=== PATIENT | male | born 1945 | race Caucasian/White ===

== ENCOUNTER 2018-03-08 10:41 | Observation (INO) ==
[2018-03-08] MEDS ORDERED: 0.9 % Sodium Chloride 500 ML IVC ONE (11:28)
[2018-03-08] MEDS ORDERED: Isovue-370 500 ML INFUS..BTL IV ONE (11:29)
[2018-03-08] MEDS ORDERED: Ondansetron 4 MG/2 ML VIAL IVP ONE (11:30)
--- NOTE | 2018-03-08 11:38 | Emergency Department Note ---
Disposition Clinical Impression: Dizziness, TIA (transient ischemic attack) Disposition: Admitted As Inpatient Condition: Fair Time of Disposition: 15:08 Dizziness HPI - General Chief Complaint: ED Dizziness Stated Complaint: Dizziness Time Seen by Provider: 03/08/18 10:47 Source: patient Mode of arrival: ambulatory Limitations: no limitations Nursing Notes Reviewed: Yes Vital Signs Reviewed: Yes - History of Present Illness HPI Narrative: 72-year-old male with history of cleft lip and cleft palate in the past presents for evaluation of dizziness. Patient states he has had dizziness for proximally one month but is not been completely evaluated. States he did see his primary care doctor who prescribed him antibiotics for an ear infection. Patient noted that he did seek medical care at [facility] yesterday for dizziness. Family at bedside was concerned because the patient was not acting appropriately. Patient did have some garbled and slurred speech that lasted approximately 1520 minutes. Repeat episode that occurred prior to arrival today. No history of strokes in the past. Family states he does have an appointment with vascular surgery in March for concerns of subclavian stenosis. Patient denies any chest pain but was complaining of some neck pain. No nausea or vomiting. Dizziness is described as room spinning not necessarily positional. Patient also is describing unsteadiness on his feet. Patient does have a strong history of secondhand smoke. - Related Data Home Medications Medication Instructions Recorded Confirmed No Known Home Drugs 03/07/18 03/08/18 Allergies Allergy/AdvReac Type Severity Reaction Status Date / Time No Known Allergies Allergy Verified 03/07/18 13:04 All systems ED: reviewed and negative except as stated. Constitutional: Denies: fever Cardiovascular: Denies: chest pain Respiratory: Reports: dyspnea Gastrointestinal: Denies: abdominal pain, nausea, vomiting Past Medical History - Past Medical History Source: patient Medical history: Reports: no medical history Psychiatric history: Reports: no psych history - Social History Smoking Status: Former smoker Smokeless Tobacco Status: No Alcohol use: Reports: none Drug use: Reports: none Physical Exam - General Limitations: no limitations General appearance: alert, in no apparent distress - Head Head exam: atraumatic, normocephalic, normal inspection - Eye Eye exam: Present: normal appearance, PERRL, EOMI, nystagmus (horizontal nystagmis) - ENT ENT exam: normal exam, normal oropharynx, mucous membranes moist, TM's normal bilaterally - Neck Neck exam: Present: normal inspection, trachea midline - Chest Chest inspection: Present: normal inspection, symmetric chest wall rise - Respiratory Respiratory exam: Present: other (diffusely diminished). Absent: accessory muscle use - Abdominal Exam Abdominal exam: Present: soft, Non-Tender - Extremities Exam Extremities exam: Present: normal inspection. Absent: pedal edema - Expanded Lower Extremity Exam Neurovascular/Tendon exam: Present: normal capillary refill - Back Exam Back exam: Present: normal inspection - Neurological Exam Neurological exam: Present: alert, oriented X3, CN II-XII intact - Expanded Neurological Exam Patient oriented to: Present: person, place, time Speech: Present: fluid speech Cranial nerves: EOM function (II, III, IV, ): Normal, facial sensation (V): Normal, facial palsy (VII): Normal, spinal accessory function (XI): Normal, tongue deviation (XII): Normal Cerebellar function: finger to nose: Normal Motor strength - LUE: 5/5 Motor strength - RUE: 5/5 Motor strength - LLE: 5/5 Motor strength - RLE: 5/5 Coma Scale Eye Opening: Spontaneous Coma Scale Motor Response: Obeys Commands Coma Scale Verbal Response: Oriented Coma Scale Total: 15 Course Course Narrative: Patient seen and examined. Patient has a nonfocal neurologic exam. Patient is describing dizziness. Patient does have risk factors for vascular disease. Patient also has risk factors for TIA. Concerns the patient may have central cause of his dizziness. Patient will get CT angiogram of the head as well as CT scan the head with basic labs including EKG chest x-ray. Patient was not a s troke alert as he does not have a non focal exam. Disposition pending. - Reevaluation(s) Reevaluation #1: Patient's resting comfortably. No needs at this time. Awaiting CT angiogram of the neck as well as CT of the head. Time: 13:02 Reevaluation #2: Updated on plan of care. Neuro exam is unchanged Time: 15:10 Vital Signs Temperature 97.5 F L 03/08/18 10:43 Pulse Rate 61 03/08/18 10:43 Respiratory Rate 16 03/08/18 10:43 Blood Pressure 148/77 03/08/18 10:43 O2 Sat by Pulse Oximetry 96 03/08/18 10:43 Temperature 97.5 F L 03/08/18 12:13 Pulse Rate 64 03/08/18 14:00 Respiratory Rate 16 03/08/18 14:00 Blood Pressure 143/78 03/08/18 14:00 O2 Sat by Pulse Oximetry 96 03/08/18 14:00 Oxygen Delivery Oxygen Delivery Room Air Dizziness - MDM Narrative Medical decision making narrative: Patient presented for concerns of dizziness. Patient does have risk factors for CVA/TIA. at bedside actually with describing slurred speech and garbled speech earlier today and last night. Patient was not a stroke alert given asymptomatic upon arrival. Patient's NIH of 0. No ataxia. Patient had CT imaging of the head as well as CT angiogram of the neck. No acute abnormalities besides small vessel ischemic disease. Patient will be admitted for advanced imaging at optimal medical management. Patient's been resting comfortable in the ED. - Lab Data Lab results reviewed: Yes I reviewed the patient's lab results. Result diagrams: 03/08/18 11:36 03/08/18 11:36 Lab Results 03/08/18 03/08/18 03/08/18 Range/Units 11:36 11:36 11:36 WBC 7.5 (4.3-11.1) K/mcL RBC 4.59 (4.19-5.50) M/mcL Hgb 14.4 (12.9-16.9) g/dL Hct 43.1 (37.5-50.1) % MCV 93.9 (83.0-100.0) fL MCH 31.4 (28.0-33.3) pg MCHC 33.4 (31.6-35.5) g/dL RDW 12.7 (11.5-14.5) % Plt Count 279 (140-400) K/mcL MPV 9.8 (9.4-12.4) fL Immature Gran % 0.3 (0-4) % Seg Neutrophils % 69.3 % Lymphocytes % 20.9 % Monocytes % 7.9 % Eosinophils % 1.1 % Basophils % 0.5 % Neutrophils # 5.2 (1.6-8.9) K/mcL Lymphocytes # 1.6 (0.6-4.6) K/mcL Monocytes # 0.6 (0.0-1.3) K/mcL Eosinophils # 0.1 (0.0-0.6) K/mcL Basophils # 0.0 (0.0-0.2) K/mcL PT 12.0 (9.4-12.1) Seconds INR 1.1 Sodium (136-145) mEq/L Potassium (3.5-5.1) mEq/L Chloride (98-107) mEq/L Carbon Dioxide (23-29) mEq/L BUN (8-23) mg/dL Creatinine (0.70-1.30) mg/dL Est GFR ( Amer) (> 60) Est GFR (Non-Af Amer) (> 60) BUN/Creatinine Ratio (6-26) Glucose (70-105) mg/dL Calculated Osmolality (280-300) Calcium (8.6-10.3) mg/dL Troponin I (< 0.04) ng/mL B-Natriuretic Peptide 16 (Less than 100) pg/mL 03/08/18 Range/Units 11:36 WBC (4.3-11.1) K/mcL RBC (4.19-5.50) M/mcL Hgb (12.9-16.9) g/dL Hct (37.5-50.1) % MCV (83.0-100.0) fL MCH (28.0-33.3) pg MCHC (31.6-35.5) g/dL RDW (11.5-14.5) % Plt Count (140-400) K/mcL MPV (9.4-12.4) fL Immature Gran % (0-4) % Seg Neutrophils % % Lymphocytes % % Monocytes % % Eosinophils % % Basophils % % Neutrophils # (1.6-8.9) K/mcL Lymphocytes # (0.6-4.6) K/mcL Monocytes # (0.0-1.3) K/mcL Eosinophils # (0.0-0.6) K/mcL Basophils # (0.0-0.2) K/mcL PT (9.4-12.1) Seconds INR Sodium 140 (136-145) mEq/L Potassium 4.1 (3.5-5.1) mEq/L Chloride 105 (98-107) mEq/L Carbon Dioxide 27 (23-29) mEq/L BUN 18 (8-23) mg/dL Creatinine 0.78 (0.70-1.30) mg/dL Est GFR ( Amer) > 60 (> 60) Est GFR (Non-Af Amer) > 60 (> 60) BUN/Creatinine Ratio 23 (6-26) Glucose 98 (70-105) mg/dL Calculated Osmolality 292 (280-300) Calcium 9.3 (8.6-10.3) mg/dL Troponin I < 0.03 (< 0.04) ng/mL B-Natriuretic Peptide (Less than 100) pg/mL - Radiology Data Radiology results reviewed: Yes I reviewed the patient's radiology results. Chest X-Ray 03/08/18 11:28 IMPRESSION: No acute process. D/ / Nghia Reno MD / Nghia Reno MD Interpreting Provider: Nghia Reno MD Head CT 03/08/18 11:29 IMPRESSION: Sequela of chronic small vessel ischemic change. No acute intracranial abnormality seen. D/ / 03/08/2018 14:39:54 Sam Melendez MD / Becky Shipley Interpreting Provider: Sam Melendez MD Neck CTA 03/08/18 11:29 IMPRESSION: Patent neck arteries. D/ / Abad Gregg MD / Abad Gregg MD Interpreting Provider: Abad Gregg MD - EKG Data EKG attestation: Yes I reviewed and interpreted this EKG. EKG shows normal: sinus rhythm Rate: normal Rhythm: NSR [place]/QRS: normal Heart block present: 1st Degree Interpretation: no acute changes, nonspecific ST-T wave changes S.B.A.R. - S.B.A.R. Situation: Demographics Background: Presenting Complaint Assessment: Vital Signs, Course and respsone to treatment, Patient/Family Expectation Recommendation: Barrier(s) to disposition, Recommendation based on pending studies, treatments, or consults S.B.A.R. Report Given to: Hospitalist S.B.A.R. Repor Time: 15:08 Attestation Statement - Attestation Attestation: I, Mp Larkin, examined this patient and my medical decision-making was reviewed with the CONCRETE PAVING MACHINE OPERATOR/PA/Advanced Practice Nurse/Resident Physician. I agree with the documented findings, disposition and treatment plan as described except to the extent set forth below. 72-year-old male presents emergency Department with concerns of lightheadedness and slurred speech. Patient reports history of lightheadedness intermittently over the past month however last night he developed slurred speech. Slurred speech improved throughout the night and he states he is mostly at his baseline in the emergency department. CT of the head and neck was negative for Acute fracture or arterial dissection or intracranial hemorrhage. Patient will likely require MRI in the hospital. He denies fever, chills, vomiting, diarrhea, chest pain, palpitations. Patient will be admitted for further care and evaluation.
[2018-03-08 11:49] LABS: Basophils % 0.5 %; Eosinophils # 0.1 K/mcL (0.0-0.6); Eosinophils % 1.1 %; Hematocrit 43.1 % (37.5-50.1); Hemoglobin 14.4 g/dL (12.9-16.9); Immature Granulocytes % 0.3 % (0-4); Lymphocytes # 1.6 K/mcL (0.6-4.6); Lymphocytes % 20.9 %; Mean Corpuscular HGB Conc 33.4 g/dL (31.6-35.5); Mean Corpuscular Hemoglobin 31.4 pg (28.0-33.3); Mean Corpuscular Volume 93.9 fL (83.0-100.0); Mean Platelet Volume 9.8 fL (9.4-12.4); Monocytes # 0.6 K/mcL (0.0-1.3); Monocytes % 7.9 %; Neutrophils # 5.2 K/mcL (1.6-8.9); Platelet Count 279 K/mcL (140-400); Red Blood Count 4.59 M/mcL (4.19-5.50); Red Cell Distribution Width 12.7 % (11.5-14.5); Segmented Neutrophils % 69.3 %
[2018-03-08 12:05] LABS: INR 1.1
[2018-03-08 12:11] LABS: Troponin I < 0.03 ng/mL (< 0.04)
[2018-03-08 12:26] LABS: BUN/Creatinine Ratio 23 (6-26); Blood Urea Nitrogen 18 mg/dL (8-23); Calcium 9.3 mg/dL (8.6-10.3); Carbon Dioxide 27 mEq/L (23-29); Chloride 105 mEq/L (98-107); Glucose 98 mg/dL (70-105); Osmolality,Calculated 292 (280-300); Potassium 4.1 mEq/L (3.5-5.1); Sodium 140 mEq/L (136-145); eGFR For Non-African Americans > 60 (> 60)
[2018-03-08] MEDS ORDERED: Aspirin 325 MG TABLET PO ONE (15:08)
--- NOTE | 2018-03-08 15:28 | Internal Med History&Physical ---
Date of Encounter: 03/08/18 Time of Encounter: 15:19 Internal Medicine - H&P: HPI Chief complaint: dizziness Admitted From: Home Plans for Post Hospital Care: Home History of present illness: Mr. Pa is a 72 year old male with no significant past medical history presented to the emergency department with dizziness. As per patient he said dizziness for the past 2 months and visited his primary care doctor who pres cribed him antibiotics approximately 2 months ago for an ear infection. He pleaded a course of antibiotics however reports that he still has dizziness. He describes his dizziness as the sensation of the room spinning around. Apparently was seen at [facility] yesterday for similar symptoms and was discharged home. He reports that this morning his dizziness got worse especially when he was getting out of bed. was at bedside reports that he also had some slurring of his speech earlier in the morning which has resolved by the time he came to the hospital. Rapid head movements make dizziness worse, getting up from a laying position makes the dizziness worse cannot recall allev iating factors except laying still. He denies recent head trauma, similar symptoms in the past, fever, chills, chest pain, shortness of breath, nausea, vomiting, diarrhea, palpitations, of consciousness, syncope, weakness or numbness in any of his extremities. In the ED CT head did not show any acute abnormalities, CTA neck was negative for any acute abnormalities. He was admitted for further evaluation of his dizziness. Past Med Surg Social Fam HX - Past Medical History Medical history: no medical history Additional medical history: congental disease, ears perferated, Psychiatric history: no psych history - Past Surgical History Additional surgical history: hernia repair - Social History Smoking Status: Former smoker Smokeless Tobacco Status: No Alcohol use: none Drug use: none Internal Medicine - H&P: Meds No Known Home Drugs 03/07/18 [History] Allergy/AdvReac Type Severity Reaction Status Date / Time No Known Allergies Allergy Verified 03/07/18 13:04 All Systems PM: A 10-system review of systems was performed and is negative for pertinent findings except as documented above in the HPI. - Constitutional Vitals: Temp Pulse Resp BP Pulse Ox 97.5 F L 68 16 136/95 97 03/08/18 12:13 03/08/18 15:00 03/08/18 15:00 03/08/18 15:00 03/08/18 15:00 Exam: General: Patient is alert, oriented, no acute distress, Head: atraumatic, normocephalic, Eye: normal appearance, PERRL, no scleral icterus, no conjunctival injection ENT: mucous membranes moist, normal external ear exam, poor dentition, cleft lip which is been operated on. Neck: normal inspection, trachea midline, full ROM, no carotid bruits Chest: normal inspection, symmetric chest rise Respiratory: Good respiratory effort. Bilateral breath sounds are clear without wheezing, crackles, or rhonchi. Cardiovascular: Regular rate and rhythm. s1 and s2 No clicks, rubs, gallops, or murmors. Abdomen: Bowel sounds present normoactive x-4 quadrants. Abdomen is soft, nondistended. no Epigastric tenderness. No guarding or rebound. No organomegaly noted, obese musculoskeletal: Spontaneously moving all extremities. no edema, no calf tenderness Skin: warm, dry, intact. Neuro: Alert and oriented x4. Sensation light touch intact. Cranial nerves 2- 12 is intact. [id number] is intact, rapid hand movements intact strength is 5 out of 5 in all extremities, speech is at baseline Psych: Patient's affect is normal Internal Med - H&P Results - Labs CBC & Chem 7: 03/08/18 11:36 03/08/18 11:36 Labs: Short CBC 03/08/18 Range/Units 11:36 WBC 7.5 (4.3-11.1) K/mcL Hgb 14.4 (12.9-16.9) g/dL Hct 43.1 (37.5-50.1) % Plt Count 279 (140-400) K/mcL Neutrophils # 5.2 (1.6-8.9) K/mcL BMP 03/08/18 11:36 Sodium 140 Potassium 4.1 Chloride 105 Carbon Dioxide 27 BUN 18 Creatinine 0.78 Glucose 98 Calcium 9.3 Cardiac Enzymes 03/08/18 Range/Units 11:36 Troponin I < 0.03 (< 0.04) ng/mL - EKG Data -: EKG Interpreted by Myself (Sinus rhythm, QT of 410) - Impressions ITS Impressions Chest X-Ray 03/08/18 11:28 IMPRESSION: No acute process. D/ / Nghia Reno MD / Nghia Reno MD Interpreting Provider: Nghia Reno MD Head CT 03/08/18 11:29 IMPRESSION: Sequela of chronic small vessel ischemic change. No acute intracranial abnormality seen. D/ / 03/08/2018 14:39:54 Sam Melendez MD / Becky Shipley Interpreting Provider: Sam Melendez MD Neck CTA 03/08/18 11:29 IMPRESSION: Patent neck arteries. D/ / Abad Gregg MD / Abad Gregg MD Interpreting Provider: Abad Gregg MD - Assessment and plan (1) TIA (transient ischemic attack) Current Visit: Yes Status: Acute Assessment and plan: Patient had slurred speech on the morning of admission which has resolved CT head performed in the emergency department did not show any acute disease CTA head performed in the ED did not show any acute disease Will get MRI headreports no metals in his body Echocardiogram Was given aspirin 325 mg in the emergency department we will continue with 81 mg daily Lipitor 80 mg daily at bedtime Lipid panel, TSH, A1c Physical therapy and rehabilitation evaluation DVT prophylaxis with subcutaneous heparin Neuro checks every 4 hours Cardiac monitoring Neurology consultation U tox CTA neck: IMPRESSION: Patent neck arteries. CT head: IMPRESSION: Sequela of chronic small vessel ischemic change. No acute intracranial abnormality seen. (2) Vertigo Current Visit: Yes Status: Acute Assessment and plan: Most likely secondary to inner ear ?infection vs BPPV vs stroke We will start meclizine 12.5 mg 3 times a day when necessary for dizziness Imaging as per above Management as per above (3) DVT prophylaxis Current Visit: Yes Status: Acute Assessment and plan: heparin subcutaneous - Time Spent With Patient Total time spent is greater than 50% in coordination of care (as documented) at patient's floor/unit and/or counseling patient:
[2018-03-08] MEDS ORDERED: Acetaminophen 325 MG TABLET PO PRN (15:33)
[2018-03-08] MEDS ORDERED: Naloxone 0.4 MG/ML INJ IVP PRN (15:33)
--- NOTE | 2018-03-08 17:39 | Electrocardiograph Report ---
[place] [id number] Test Date: 2018-03-08 Pat Name: Haim Pa Department: [id number] Room: 3B Gender: M Patternator: : 1945 Requested By: Anant Braxton Order Number: [id number] Reading MD: Blanco Sheridan Measurements Intervals [place] Rate: 59 P: -29 VA: 212 QRS: -4 QRSD: 95 T: 8 QT: 413 QTc: 410 Interpretive Statements Sinus rhythm Borderline prolonged VA interval Electronically Signed On 03-08-2018 17:37:38 EST by Blanco Sheridan
[2018-03-08] MEDS: *HR* Heparin 5,000 UNIT/ML VIAL SQ SCH (21:47)
[2018-03-09 05:29] LABS: Basophils % 0.6 %; Eosinophils # 0.1 K/mcL (0.0-0.6); Eosinophils % 1.8 %; Hematocrit 41.4 % (37.5-50.1); Hemoglobin 13.8 g/dL (12.9-16.9); Immature Granulocytes % 0.3 % (0-4); Lymphocytes # 1.8 K/mcL (0.6-4.6); Lymphocytes % 25.2 %; Mean Corpuscular HGB Conc 33.3 g/dL (31.6-35.5); Mean Corpuscular Hemoglobin 31.4 pg (28.0-33.3); Mean Corpuscular Volume 94.3 fL (83.0-100.0); Mean Platelet Volume 9.9 fL (9.4-12.4); Monocytes # 0.5 K/mcL (0.0-1.3); Monocytes % 7.5 %; Neutrophils # 4.6 K/mcL (1.6-8.9); Platelet Count 268 K/mcL (140-400); Red Blood Count 4.39 M/mcL (4.19-5.50); Red Cell Distribution Width 12.7 % (11.5-14.5); Segmented Neutrophils % 64.6 %
[2018-03-09 05:55] LABS: BUN/Creatinine Ratio 24 (6-26); Blood Urea Nitrogen 18 mg/dL (8-23); Carbon Dioxide 25 mEq/L (23-29); Chloride 108 mEq/L (98-107); Chol/HDL Ratio 5.6 (0-4.9); Cholesterol 179 mg/dL (< 200); Glucose 116 mg/dL (70-105); HDL Cholesterol 32 mg/dL (40-59); LDL Cholesterol,Calculated 127 mg/dL (0-99); Osmolality,Calculated 293 (280-300); Potassium 4.1 mEq/L (3.5-5.1); Sodium 140 mEq/L (136-145); Triglycerides 102 mg/dL (< 150); eGFR For Non-African Americans > 60 (> 60)
[2018-03-09 06:04] LABS: Thyroid Stimulating Hormone 2.373 mcIU/mL (0.340-5.600)
[2018-03-09] MEDS: *HR* Heparin 5,000 UNIT/ML VIAL SQ SCH ×3 (06:06→20:05)
[2018-03-09 07:03] LABS: Estimated Average Glucose 117 mg/dl; Hemoglobin A1C 5.7 %
[2018-03-09] MEDS: Cyanocobalamin (B-12) 1,000 MCG TABLET PO SCH (09:02)
[2018-03-09] MEDS: Aspirin Enteric Coated 81 MG Tablet PO SCH (09:02)
--- NOTE | 2018-03-09 13:35 | Internal Med Progress Note ---
Hospitalist Progress Note - Encounter Date of Encounter: 03/09/18 Time of Encounter: 07:45 - Subjective Interval History: patient was seen and examiedn at bedside, at bedside- all questions answered he reports that he still feels dizzy both at rest and when he sits up. reports that the medicine is only helping him minimally. is tolerating diet denies fever, chills, N/V/D, CP, SOB. not complaining of pain - Exam Vitals: Temp Pulse Resp BP Pulse Ox 98.4 F 66 15 129/83 95 03/09/18 11:42 03/09/18 11:42 03/09/18 11:42 03/09/18 11:42 03/09/18 11:42 Exam: General: Patient is alert, oriented, no acute distress, Head: atraumatic, normocephalic, Eye: normal appearance, PERRL, no scleral icterus, no conjunctival injection ENT: mucous membranes moist, normal external ear exam, poor dentition, cleft lip which is been operated on. Neck: normal inspection, trachea midline, full ROM, no carotid bruits Chest: normal inspection, symmetric chest rise Respiratory: Good respiratory effort. Bilateral breath sounds are clear without wheezing, crackles, or rhonchi. Cardiovascular: Regular rate and rhythm. s1 and s2 No clicks, rubs, gallops, or murmors. Abdomen: Bowel sounds present normoactive x-4 quadrants. Abdomen is soft, nondistended. no Epigastric tenderness. No guarding or rebound. No organomegaly noted, obese musculoskeletal: Spontaneously moving all extremities. no edema, no calf tenderness Skin: warm, dry, intact. Neuro: Alert and oriented x4. Sensation light touch intact. Cranial nerves 2- 12 is intact. [id number] is intact, rapid hand movements intact strength is 5 out of 5 in all extremities, speech is at baseline Psych: Patient's affect is normal - Assessment and Plan (1) TIA (transient ischemic attack) Current Visit: Yes Status: Acute Assessment and Plan: Patient had slurred speech on the morning of admission which has resolved CT head performed in the emergency department did not show any acute disease CTA head performed in the ED did not show any acute disease MRI head - NAD Echocardiogram pending Was given aspirin 325 mg in the emergency department we will continue with 81 mg daily Lipitor 80 mg daily at bedtime Lipid panel noted - will decrease lipitor to 40 mg daily A1c 5.7 TSH 2.373 Physical therapy and rehabilitation evaluation DVT prophylaxis with subcutaneous heparin Neuro checks every 4 hours Cardiac monitoring Neurology consulted will follow recs U tox- pending CTA neck: IMPRESSION: Patent neck arteries. CT head: IMPRESSION: Sequela of chronic small vessel ischemic change. No acute intracranial abnormality seen. MRI: IMPRESSION: No acute intracranial abnormality. Mild parenchymal volume loss. Mild chronic microvascular disease. (2) Vertigo Current Visit: Yes Status: Acute Assessment and Plan: Most likely secondary to inner ear ?infection vs BPPV vs stroke We will start meclizine 12.5 mg 3 times a day for dizziness neurology consulted will follow recommendations as he still feels dizzy. Imaging as per above Management as per above (3) DVT prophylaxis Current Visit: Yes Status: Acute Assessment and Plan: heparin subcutaneous - Time Spent with Patient Total time spent is greater than 50% in coordination of care (as documented) at patient's floor/unit and/or counseling patient: Internal Medicine: Result - Labs CBC & Chem 7: 03/09/18 05:11 03/09/18 05:11 Labs: Short CBC 03/09/18 Range/Units 05:11 WBC 7.1 (4.3-11.1) K/mcL Hgb 13.8 (12.9-16.9) g/dL Hct 41.4 (37.5-50.1) % Plt Count 268 (140-400) K/mcL Neutrophils # 4.6 (1.6-8.9) K/mcL BMP 03/09/18 05:11 Sodium 140 Potassium 4.1 Chloride 108 H Carbon Dioxide 25 BUN 18 Creatinine 0.76 Glucose 116 H Calcium 9.0 - ABG Interpretation ABG results: PT/INR, D-dimer PT 12.0 Seconds (9.4-12.1) 03/08/18 11:36 - Impressions Impressions Head CT 03/08/18 11:29 IMPRESSION: Sequela of chronic small vessel ischemic change. No acute intracranial abnormality seen. D/ / 03/08/2018 14:39:54 Sam Melendez MD / Becky Shipley Interpreting Provider: Sam Melendez MD Neck CTA 03/08/18 11:29 IMPRESSION: Patent neck arteries. D/ / Abad Gregg MD / Abad Gregg MD Interpreting Provider: Abad Gregg MD Brain MRI 03/08/18 15:33 IMPRESSION: No acute intracranial abnormality. Mild parenchymal volume loss. Mild chronic microvascular disease. D/ / Aguilar Carrillo MD / Aguilar Carrillo MD Interpreting Provider: Aguilar Carrillo MD Consult Discharge Plan - Plan Referrals: Adalgisa Qureshi MD [Primary Care Provider] -
--- NOTE | 2018-03-09 17:28 | Neurology - Consult Note ---
Date of Encounter: 03/09/18 Time of Encounter: 15:26 Assessment and Plan (1) Dizziness Current Visit: Yes Status: Acute This patient was been experiencing this dizziness for the past 2 months already has received outpatient antibiotics continued to be dizzy but is predominantly positional in nature without any clinical sinus symptoms to be suggestive of posterior circulation stroke. No evidence of any vertebral basilar insufficiency on CT angiogram of the neck which has been negative. Next line MRI of the brain was also negative. Considering his symptoms he may benefit from IV fluids perhaps could try him on a steroid as sometimes that also helpful patient would also benefit from outpatient vestibular rehabilitation due to the fact that this looks more peripheral than central. Other treatment is as per primary team (2) Vertigo Current Visit: Yes Status: Acute History of Present Illness HPI: Mr. Pa is a 72 year old male with no significant past medical history presented to the emergency department with dizziness. according to pt, he has dizziness for the past 2 months and visited his primary care doctor who prescribed him antibiotics approximately 2 months ago for an ear infection. He describes his dizziness as the sensation of the room spinning around. Apparently was seen at [facility] yesterday for similar symptoms and was discharged home. He reports that this morning his dizziness got worse especially when he was getting out of bed, head movements make dizziness worse, getting up from a laying position makes the dizziness worse. He denies recent head trauma, similar symptoms in the past, fever, chills, chest pain, shortness of breath, nausea, vomiting, diarrhea, palpitations, of consciousness, syncope, weakness or numbness in any of his extremities. In the ED CT head did not show any acute abnormalities, CTA neck was negative for any acute abnormalities. He was admitted for further evaluation of his dizziness. also had MRI of brain reported as negative Past Med Surg Social Fam HX - Past Medical History Medical history: no medical history Additional medical history: congental disease, ears perferated, Psychiatric history: no psych history - Past Surgical History Additional surgical history: hernia repair - Social History Smoking Status: Former smoker Smokeless Tobacco Status: No Alcohol use: none Drug use: none - Family History Mother Living Status: Still Living Hx Family Genitourinary Disorders: Yes (renal disease) Hx Family Neurologic Disorders: Yes (dementia) Father Living Status: Still Living Hx Family Cardiac Disorders: Yes (carotids) Medications and Allergies No Known Home Drugs 03/07/18 [History] Allergy/AdvReac Type Severity Reaction Status Date / Time No Known Allergies Allergy Verified 03/07/18 13:04 All Systems: The remainder of the systems were reviewed and are negative Physical Examination - Vital Signs Vital Signs: Initial Vital Signs Temp Pulse Resp BP Pulse Ox 97.5 F L 61 16 148/77 96 03/08/18 10:43 03/08/18 10:43 03/08/18 10:43 03/08/18 10:43 03/08/18 10:43 - Exam Exam: GENERAL: Comfortable in no acute distress HEENT: Normal LUNGS: CTA HEART: RRR, S1 S2 Audible, no murmur EXTREMITIES: No Pedal edema. DETAILED NEUROLOGICAL EXAMINATION: MENTAL STATUS: Oriented to person, place, date and situation. Memory: knows the President, Aware of recent events Recent Memory Intact, Attention span is normal Cranial Nerve Examination: CN - II: Visual Acuity, Field of Vision Normal, Fundus examination: No disk edema, Pupils- size shape reaction to light and accommodation: All normal. CN III, IV, : External ocular movements were intact, Pupils were reactive, Nodrooping of the eyelids CN V: Sensation over the face to light touch and pinprick all normal. Corneal reflexes not tested, jaw jerk normal. CN VII: No facial asymmetry, no flattening of nasolabial folds, no difficulty in closing the eyes, no loss of forehead wrinkles, no difficulty in eye-closure, frowning raising eyebrows. CNVIII: No significant hearing loss CN IX, X: Uvula centralized not deviated, Gag reflex: Not tested CN X1: Sternocleidomastoid, trapezius, normal or evidence of any weakness. 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 Motor examination: No hypertrophy, tone was normal, power grade 0-5 Upper limbs Proximal- No difficulty in lifting the arms above the head. Distal- No weakness in distal muscles On formal testing 5/5 all over Lower limbs On formal testing 5/5 all over Coordination: [id number] normal. Target pursuit normal finger tapping normal, Rapid alternating moment of wrist normal Sensory system: Superficial sensations- Touch normal. Pain- Pinprick, Temperature all normal, Deep sensation normal, Joint position sense normal. Cortical sensation, Tactile discrimination, localization and extinction all normal. Deep tendon reflexes. Symmetrical bilateral, No evidence of Babinski. No sign of meningeal irritation Gait Examination: Deferred Results - Laboratory Findings CBC and BMP: 03/09/18 05:11 03/09/18 05:11 Abnormal lab findings: Abnormal lab results Chloride 108 mEq/L (98-107) H 03/09/18 05:11 Glucose 116 mg/dL (70-105) H 03/09/18 05:11 Hemoglobin A1c 5.7 % (-5.6) H 03/09/18 05:11 LDL Cholesterol, Calc 127 mg/dL (0-99) H 03/09/18 05:11 HDL Cholesterol 32 mg/dL (40-59) L 03/09/18 05:11 Cholesterol/HDL Ratio 5.6 (0-4.9) H 03/09/18 05:11 Vitamin B12 170 pg/mL (250-1100) L 03/09/18 05:11 - Diagnostic Findings Additional findings: CT angiogram of the neck as well as MRI of the brain both were negative Consult Discharge Plan - Plan Referrals: Adalgisa Qureshi MD [Primary Care Provider] -
[2018-03-09] MEDS ORDERED: Cyanocobalamin (B-12) 1,000 MCG/ML VIAL SQ ONE (17:31)
[2018-03-09] MEDS: 0.9 % Sodium Chloride 1,000 ML IVC SCH (18:43)
[2018-03-09] MEDS: predniSONE 20 MG TABLET PO SCH (20:05)
[2018-03-10] MEDS: *HR* Heparin 5,000 UNIT/ML VIAL SQ SCH ×3 (06:01→20:25)
--- NOTE | 2018-03-10 08:44 | Internal Med Progress Note ---
Hospitalist Progress Note - Encounter Date of Encounter: 03/10/18 Time of Encounter: 08:41 - Subjective Interval History: Mr. Pa is a 72 year old male with no significant past medical history presented to the emergency department with dizziness. As per patient he said dizziness for the past 2 months and visited his primary care doctor who prescribed him antibiotics approximately 2 months ago for an ear infection. He pleaded a course of antibiotics however reports that he still has dizziness. He describes his dizziness as the sensation of the room spinning around. Apparently was seen at [facility] yesterday for similar symptoms and was discharged home. He reports that this morning his dizziness got worse especially when he was getting out of bed. was at bedside reports that he also had some slurring of his speech earlier in the morning which has resolved by the time he came to the hospital. Rapid head movements make dizziness worse, getting up from a laying position makes the dizziness worse cannot recall alleviating factors except laying still. He denies recent head trauma, similar symptoms in the past, fever, chills, chest pain, shortness of breath, nausea, vomiting, diarrhea, palpitations, of consciousness, syncope, weakness or numbness in any of his extremities. In the ED CT head did not show any acute abnormalities, CTA neck was negative for any acute abnormalities. He was admitted for further evaluation of his dizziness. TIA work up was negative. neurology was consulted. vertigo is likley pheripheral , paitent was started on prednisone 50 mg on 03/09, still very dizzy and mild ataxic. I add scheduled meclizine 12,5 TID today. If dizziness improves then can be discharge tomorrow. - Exam Vitals: Temp Pulse Resp BP Pulse Ox 97.6 F 85 16 117/73 95 03/10/18 07:27 03/10/18 07:27 03/10/18 07:27 03/10/18 07:27 03/10/18 07:27 Exam: General: Patient is alert, oriented, no acute distress, Head: atraumatic, normocephalic, Eye: normal appearance, PERRL, no scleral icterus, no conjunctival injection ENT: mucous membranes moist, normal external ear exam, poor dentition, cleft lip which is been operated on. Neck: normal inspection, trachea midline, full ROM, no carotid bruits Chest: normal inspection, symmetric chest rise Respiratory: Good respiratory effort. Bilateral breath sounds are clear without wheezing, crackles, or rhonchi. Cardiovascular: Regular rate and rhythm. s1 and s2 No clicks, rubs, gallops, or murmors. Abdomen: Bowel sounds present normoactive x-4 quadrants. Abdomen is soft, nondistended. no Epigastric tenderness. No guarding or rebound. No organomegaly noted, obese musculoskeletal: Spontaneously moving all extremities. no edema, no calf tenderness Skin: warm, dry, intact. Neuro: Alert and oriented x4. Sensation light touch intact. Cranial nerves 2- 12 is intact. Ulsy-sh-cysc is intact, rapid hand movements intact strength is 5 out of 5 in all extremities, speech is at baseline Psych: Patient's affect is normal - Assessment and Plan (1) TIA (transient ischemic attack) Current Visit: Yes Status: Acute Assessment and Plan: Assessment and Plan: TIA d/c on ASA statin Patient had slurred speech on the morning of admission which has resolved CT head performed in the emergency department did not show any acute disease CTA head performed in the ED did not show any acute disease MRI head - NAD Echocardiogram is normal EF 60%, negative PFO Was given aspirin 325 mg in the emergency department on ASA 81 mg Lipitor 80 mg daily at bedtime Lipid panel noted - will decrease lipitor to 40 mg daily A1c 5.7 TSH 2.373 Physical therapy and rehabilitation evaluation DVT prophylaxis with subcutaneous heparin Neuro checks every 4 hours can d/c on ASA and statin CTA neck: IMPRESSION: Patent neck arteries. CT head: IMPRESSION: Sequela of chronic small vessel ischemic change. No acute intracranial abnormality seen. MRI: negative for acute stroke (2) Dizziness Current Visit: Yes Status: Acute Assessment and Plan: patient has long hx of b/l ear infection, Otoscpy exam did not show active infections, he just completed a course of ATB from PCP. appreciate neurology consult , current on prednisone 50 mg daily, add meclizine 12,5 mg ;TID schedule if dizziness improves tomorrow can discharge on 10 days of prednisone taper and meclizine Op vestibular rehabilitation (3) Vertigo Current Visit: Yes Status: Acute Assessment and Plan: see above, peripheral vertigo (4) DVT prophylaxis Current Visit: Yes Status: Acute - Time Spent with Patient Total time spent is greater than 50% in coordination of care (as documented) at patient's floor/unit and/or counseling patient: 25 - 35 minutes Plan of Care Discussed with: patient Internal Medicine: Result - Labs CBC & Chem 7: 03/09/18 05:11 03/09/18 05:11 - ABG Interpretation ABG results: PT/INR, D-dimer PT 12.0 Seconds (9.4-12.1) 03/08/18 11:36 - Impressions Impressions Echocardiogram 03/09/18 08:30 Impressions: LVEF 60%. Mild left ventricular diastolic dysfunction. Normal right ventricular structure and function. Mild mitral regurgitation. No pulmonary hypertension. Left Ventricular Wall Motion: Rest Echo Findings All wall segments showed normal motion. Findings: Study Quality * Technically adequate exam. ECG Findings * Normal sinus rhythm. Left Ventricle * LVEF 60%. * Normal LV chamber size, wall thickness and function. * Mild left ventricular diastolic dysfunction. * No LVOTO. Right Ventricle * Normal right ventricular structure and function. Left Atrium * Normal left atrial size. Right Atrium * Normal right atrial size. Mitral Valve * Normal mitral valve structure. * No mitral stenosis. * Mild mitral regurgitation. Aortic Valve * No aortic regurgitation. * Aortic valve not well visualized. * No aortic stenosis. Tricuspid Valve * Normal tricuspid valve structure. * Trace tricuspid regurgitation. * Estimated RA pressure is 3 mmHg. * Estimated RVSP is 16 mmHg. * No pulmonary hypertension. Pulmonic Valve * Pulmonic valve is not well visualized. * No pulmonic stenosis. * No pulmonic regurgitation. Pulmonary Artery * Pulmonary artery not well visualized. Aorta * Normally sized aortic root. Pericardium * There is no pericardial effusion present. Interatrial Septum * No evidence of PFO by color Doppler. IVC * Normal IVC dimensions and inspiratory collapse. Consult Discharge Plan - Plan Referrals: dAalgisa Qureshi MD [Primary Care Provider] -
[2018-03-10] MEDS: Cyanocobalamin (B-12) 1,000 MCG TABLET PO SCH (09:34)
[2018-03-10] MEDS: Aspirin Enteric Coated 81 MG Tablet PO SCH (09:34)
[2018-03-10] MEDS: 0.9 % Sodium Chloride 1,000 ML IVC SCH (15:15)
[2018-03-10] MEDS: predniSONE 20 MG TABLET PO SCH (18:21)
[2018-03-11] MEDS: *HR* Heparin 5,000 UNIT/ML VIAL SQ SCH (05:45)
[2018-03-11 07:07] VITALS: BP 125/76
[2018-03-11] MEDS: Aspirin Enteric Coated 81 MG Tablet PO SCH (08:06)
[2018-03-11] MEDS: Cyanocobalamin (B-12) 1,000 MCG TABLET PO SCH (08:07)
--- NOTE | 2018-03-11 08:36 | Discharge Summary ---
- NOTES TO OUTPATIENT PROVIDER Notes to Outpatient Provider: f/u with PCP in one week. f/u with ENT in 1-2 weeks. Please take Meclizine 12.5mg PO TID as scheduled for 2 days , once your dizziness improves start taking it as needed for dizziness Orders not resulted at time of discharge: Pending orders 03/08/18 15:33 Drug Screen, Urine [UCHEM] Stat Date of Encounter: 03/11/18 Time of Encounter: 08:32 - Discharge Diagnosis (1) TIA (transient ischemic attack) Priority: Primary Status: Acute (2) Vertigo Priority: Primary Status: Acute (3) DVT prophylaxis Priority: Secondary Status: Acute Hospital course: Mr. Pa is a 72 year old male with no significant past medical history presented to the emergency department with dizziness. As per patient he said dizziness for the past 2 months and visited his primary care doctor who prescribed him antibiotics approximately 2 months ago for an ear infection. He described his dizziness as the sensation of the room spinning around. Rapid head movements make dizziness worse, getting up from a laying position makes the dizziness worse cannot recall alleviating factors except laying still. In the ED CT head did not show any acute abnormalities, CTA neck was negative for any acute abnormalities. He was admitted for further evaluation of his dizziness. His MRI did not show any acute infraction. TIA work up was negative. neurology was consulted. His dizziness/ vertigo improved with scheduled Antivert 12.5mg. Pt states he feels lot better today. Will d/c him home in stable condition today. Recommend to follow with ENT as outpatient in one week for vestibular rehab therapy - Time Spent with Patient Total time spent providing and/or coordinating discharge services: - Discharge Medications Prescriptions: Aspirin Enteric Coated [Aspirin EC] 81 mg PO DAILY #30 tablet. Atorvastatin Calcium [Lipitor] 20 mg PO HS #30 tablet Meclizine [Antivert] 12.5 mg PO TID PRN #30 tablet PRN Reason: Vertigo Home Medications: Aspirin Enteric Coated [Aspirin EC] 81 mg PO DAILY #30 tablet. 03/11/18 [Rx] Atorvastatin Calcium [Lipitor] 20 mg PO HS #30 tablet 03/11/18 [Rx] Meclizine [Antivert] 12.5 mg PO TID PRN #30 tablet 11/12/18 [Rx] Allergies/Adverse Reactions: Allergy/AdvReac Type Severity Reaction Status Date / Time No Known Allergies Allergy Verified 03/07/18 13:04 Date of admission: 03/08/18 15:14 Primary care physician: Adalgisa Qureshi MD Consults: 03/08/18 15:33 Consult to Case Management [CONS] Routine Comment: Consult to Neurology [CONS] Routine Consulting Provider: Neurology [facility] Reason for Consult: Dizziness, TIA Call Completed: No Consult to Physical Therapy [CONS] Routine Comment: Evaluate, develop and implement POC Reason for Consult: dispostion Does patient have active BEDREST order?: No Is patient medically & hemodynamically stable?: Yes Patient assessed for mobility or mobilized this visit?: Yes - Constitutional Vitals: Temp Pulse Resp BP Pulse Ox 97.4 F L 65 18 125/76 96 03/11/18 07:07 03/11/18 07:07 03/11/18 07:07 03/11/18 07:07 03/11/18 07:07 General appearance: Present: A&O X 3 Exam: Gen: Alert, awake, Oriented to time,place and person Chest: Diminished breath sounds B/L, No wheezing, No crackles, No rales Heart: S1S2+ RRR No murmurs Abd: Soft, NT, BS +, No organomegaly Ext: No edema, pulses are palpable, No calf tenderness Neuro : no ataxic gait.. No nystagmus Skin: No rash. - Patient Status Disposition: Home, Self-Care Condition: Good Overall status at discharge: patient is back to baseline - Discharge Instructions Follow Up With: Adalgisa Qureshi MD [Primary Care Provider] - Nura Scruggs DO [Partnered Physician] - - Diet and Activity Activity: increase activity as tolerated Diet: low salt diet
== END 2018-03-11 10:39 | disposition home or self-care (01) ==
LOC: EMEROOARM 10:41 → 3BNU 10:41 → SUATTDRO 15:14 → 3BNU 15:35
PROVIDERS: ADMIT Internal Medicine; ATTEND Hospitalist